=== PATIENT | female | born 1995 | race Caucasian/White ===

== ENCOUNTER 2018-11-24 14:39 | Emergency (ER) | payer OTHER ==
[~2018-11-24] VITALS: Ht 167.6 cm; Wt 45.4 kg
[2018-11-24] MEDS ORDERED: TRUVADA 200 MG1 EACH PO (19:39)
[2018-11-24] MEDS ORDERED: ISENTRESS400 MG PO (19:39)
== END 2018-11-24 20:20 | disposition home or self-care (01) ==
LOC: ED 14:39
DX: T74.21XA Adult sexual abuse, confirmed, initial encounter (principal); F17.200 Nicotine dependence, unspecified, uncomplicated
CPT/HCPCS: 36415; 80053; 85025; 86703; 86706; 86707; 96372; 99284-25; J0696